=== PATIENT | male | born 1940 | race Caucasian/White ===

== ENCOUNTER 2022-09-04 08:40 | Emergency (ER) | payer OTHER, MEDICARE ==
[2022-09-04] MEDS ORDERED: Ketorolac 30 MG/ML SDV IVPUSH ONE (09:56)
[2022-09-04] MEDS ORDERED: Sodium Chloride 0.9% 10 ML Syringe FLUSH PRN (09:59)
[2022-09-04] MEDS ORDERED: Iopamidol 612 MG/ML 100 ML Bottle IVPUSH STA (10:06)
[2022-09-04 10:43] LABS: ANION GAP 16.3 meq/L (7-15)
== END 2022-09-04 14:50 | disposition home or self-care (01) ==
LOC: LL.ED 08:40
DX: S32.010A Wedge compression fracture of first lumbar vertebra, initial encounter for closed fracture (principal); W00.0XXA Fall on same level due to ice and snow, initial encounter
CPT/HCPCS: 36415; 72100; 74019; 74177; 80053; 85027; 96374; 99284; 99284-25; J1885; J3490; Q9967

== ENCOUNTER 2022-09-19 10:31 | Emergency (ER) | payer OTHER, MEDICARE ==
[2022-09-19] MEDS ORDERED: Diltiazem 25 MG/5 ML SDV IVPUSH ONE (10:57)
[2022-09-19 11:16] LABS: PTT,PARTIAL THROMBOPLSTIN TIME 23.6 SEC (23.6-29.8)
[2022-09-19] MEDS: Sodium Chloride 0.9% 10 ML Syringe FLUSH PRN ×2 (11:16→12:32)
[2022-09-19 11:19] LABS: ANION GAP 15.6 meq/L (7-15); CHLORIDE,CL 96 mmol/L (98-107); ESTIMATED GFR 60 mL/min (>=60); SODIUM,NA 137 mmol/L (136-145)
[2022-09-19] MEDS ORDERED: cloNIDine 0.1 MG Tab PO ONE (11:40)
[2022-09-19] MEDS ORDERED: Labetalol 20 MG/4 ML Syringe IVPUSH ONE (12:17)
[2022-09-19] MEDS ORDERED: Metoprolol Tartrate 25 MG Tab PO SCH (13:15)
[2022-09-19] MEDS ORDERED: Apixaban 5 MG Tab PO SCH (13:15)
[2022-09-19 15:06] LABS: CORONAVIRUS COVID-19 NAA NEGATIVE (NEGATIVE); RESPIRATORY SYNCYTIAL VIR NAA NEGATIVE (NEGATIVE)
[2022-09-19] MEDS ORDERED: LORazepam 2 MG/ML SDV IVPUSH ONE (16:00)
[2022-09-19] MEDS ORDERED: Albuterol/Ipratropium 3.0-0.5 MG/3 ML Neb Soln NEB ONE (16:00)
[2022-09-19] MEDS ORDERED: LORazepam 2 MG/ML SDV ONE (16:04)
[2022-09-19] MEDS ORDERED: Albuterol/Ipratropium 3.0-0.5 MG/3 ML Neb Soln ONE (16:05)
[2022-09-19 16:38] LABS: BARBITURATE SCREEN,URINE NEGATIVE (NEGATIVE); BENZODIAZEPINES SCREEN,URINE NEGATIVE (NEGATIVE); EDDP,URINE SCREEN NEGATIVE (NEGATIVE); TCA SCREEN,URINE NEGATIVE (NEGATIVE); THC SCREEN,URINE 50 NG/ML NEGATIVE (NEGATIVE)
[2022-09-19 16:41] LABS: BUPRENORPHINE SCREEN,URINE NEGATIVE (NEGATIVE)
== END 2022-09-19 16:46 ==
LOC: LL.ED 10:31
DX: I67.4 Hypertensive encephalopathy (principal); I48.91 Unspecified atrial fibrillation; I16.0 Hypertensive urgency; E11.9 Type 2 diabetes mellitus without complications; Z87.891 Personal history of nicotine dependence; Z79.899 Other long term (current) drug therapy; Z79.84 Long term (current) use of oral hypoglycemic drugs; Z20.822 Contact with and (suspected) exposure to COVID-19
CPT/HCPCS: 0241U; 36415; 70450; 80053; 80305-QW; 80307; 81001; 82803; 82947; 84484; 85025; 85379; 85610; 85730; 93005; 93010; 96374; 96375; 99284; 99285-25; A9270-GY; J3490; J7620-GY